=== PATIENT | male | born 1945 | race Caucasian/White ===

== ENCOUNTER → 2016-10-30 | Day surgery (SDC) | payer MEDICARE, OTHER ==
[~2016-10-30] VITALS: Ht 182.9 cm; Wt 136.0 kg
[~2016-10-30] MED LIST: ACETAMINOPHEN/HYDROcodone 325 MG/7.5 MG TAB PO PRN; ASPI-110 PO; BUPIVACAINE/EPINEPHRINE 0.25% 50 ML VIAL ONE; CHLORHEXIDINE GLUCONATE 2 % 1 PACK (2 CLOTHS) TOPICAL PRN; CHLORHEXIDINE GLUCONATE 4% SOLN 120 ML BTL TOPICAL SCH; DO NOT ADM ANY ANTICOAGULANT DRUGS PRN; FOLI800T PO; GENTAMICIN SULFATE 80 MG/2 ML VIAL ONE; HYDR-3288 PO; INSULIN HUMAN REGULAR 1,000 UNITS/10 ML VIAL SQ PRN; LACTATED RINGER'S 1000 ML IV PRN; MELO-1 PO; METH2.5T PO; METOPROLOL TARTRATE 25 MG TAB PO PRN; MORPHINE SULFATE 4 MG/ML INJ IV PUSH PRN; PHENYLEPH/NS 1000 MCG/10 ML SYR IV ONE; POVIDONE IODINE 5% (ANTISEPSIS KIT) 4 APPLICATIONS EACH NARE PRN; POVIDONE IODINE 7.5% SCRUB 118 ML BOTTLE TOPICAL SCH; PROPOFOL 200 MG/20 ML AMP IV ONE; ROPI1TAB PO; SODIUM CHLOR 0.9% 250 ML INJ 250 ML ONE; SODIUM CHLORID 0.9% 500 ML IV PRN; SODIUM CHLORIDE 0.9% FLUSH 10 ML FLUSH IV FLUSH PRN; SODIUM CHLORIDE 0.9% FLUSH 10 ML FLUSH IV FLUSH SCH; VANCOMYCIN HCL 1000 MG VIAL ONE; ceFAZolin 2 GM PREMIX 50 ML IV SCH; ceFAZolin 2 GM PREMIX 50 ML ONE; ceFAZolin INJ 1,000 MG VIAL ONE; ePHEDrine/NS 25 MG/5 ML SYR IV ONE
--- NOTE | 2016-10-30 11:54 | PD.OP ---
cc: Kem Jimenez MD Operative Report Date of Surgery: Oct 30, 2016 Preoperative Diagnosis: Left ankle distal tibiofibular ligament tear with disruption of the syndesmosis. Left ankle rupture of deltoid ligament. Postoperative Diagnosis: Same Procedure: Left ankle open reduction and internal fixation of syndesmosis. Left ankle open repair of deltoid ligament. Anesthesia: Gen. Surgeon: Kem Jimenez Production Administrative Assistant(s): GUSTAVO Mchugh The surgical procedure was assisted by my Advanced Registered Nurse Practitioner. My PATTERN SHOP SUPERVISOR presence was necessary throughout this case for the manipulation and positioning of the surgical extremity. My PATTERN SHOP SUPERVISOR was assisting me throughout the duration of this procedure. The skill set of an Advance Registered Nurse Practitioner was medically necessary to complete this procedure. During the surgical case, the surgical manager was working at the back table and the Advance Registered Nurse Practitioner was directly assisting me. Operation and Findings: The patient was brought back to the operative theater. Gen. anesthesia was administered. We did not use a tourniquet. The patient received intravenous Ancef and vancomycin. The left lower extremity was prepped and draped in usual sterile fashion. We took fluoroscopic imaging of the ankle with an without stress which showed very significant instability to the syndesmosis with extreme subluxation of the talus with abduction force. With varus force the ankle reduced. We made incision along the lateral aspect of the ankle after infiltrating local anesthesia with Marcaine. We started with fixation using a 4.0 fully threaded stainless steel screw. We drilled the 3 cortices including both cortices of the fibula and the lateral cortex of the tibia with the 4.0 drill bit. The fourth cortex was drilled with the small drill bit to allow for purchase of the screw. We anatomically reduced the mortise and then tightened the screw. We further secured the mortise fixation up a little more proximally using 3.5 fully threaded cortex screw placed in standard fashion. We stressed the mortise and found that the mortise was now anatomic and no longer unstable. However, we did find that the deltoid ligament still lent to quite a bit of tibial tilting. We did make incision medially and identified the deltoid ligament torn off of the medial malleolus and flipped into the joint region. This was removed. We then placed a deep anchor, Arthrex 3.5 with an associated #2 FiberWire. There was some minor fragmentation of the medial malleolus with punching before putting in the anchor. The anchor had excellent purchase. We then repaired the deltoid ligament placing multiple sutures, horizontal mattress in nature through the deltoid ligament up and down the ligament several times. This created very nice fixation. We took final fluoroscopic imaging revealing good position to the ankle. The wounds were irrigated and closed with 2-0 Vicryl followed by 3-0 nylon. The patient leg was dressed and placed into a splint. Postoperative plan is nonweightbearing for 3 months. He will require a staged, planned removal of hardware for the syndesmotic screws at that time. Kem Jimenez MD Oct 30, 2016 11:54
[2016-10-30 13:35] VITALS: BP 165/92; PULSE 94; RESP 20; TEMP 98.5; O2SAT 96
--- NOTE | 2016-10-30 13:40 | EKG ---
Date Performed: 10/30/2016 Time Performed: 08:13:17 PTAGE: 70 years EKG: Sinus rhythm POSSIBLE RIGHT VENTRICULAR CONDUCTION DELAY LEFT VENTRICULAR HYPERTROPHY AND ST-T CHANGE ABNORMAL EC G NO PREVIOUS TRACING DOCTOR: John Krishnamurthy Interpretating Date/Time 10/30/2016 13:38:00
--- NOTE | 2016-10-30 17:15 | RADRPT ---
EXAM DATE/TIME: 10/30/2016 10:59 [facility] COMPARISON: No previous studies available for comparison. INDICATIONS : Left ankle fracture repair. OR. MEDICAL HISTORY : None. SURGICAL HISTORY : None. ENCOUNTER: Initial ACUITY: 1 day PAIN SCORE: Non-responsive. LOCATION: Left ankle FINDINGS: 5 images were recorded digitally in the operating room using C-arm during screw fixation and reductio n of ankle dislocation. CONCLUSION: Intraoperative images. Tonio Barba MD on October 30, 2016 at 17:12 Board Certified Radiologist. This report was verified electronically.
== END | disposition home or self-care (01) ==
LOC: HSDC 07:05
PROVIDERS: ATTEND Orthopaedic Surgery
DX: S93.432A Sprain of tibiofibular ligament of left ankle, initial encounter (principal); S93.422A Sprain of deltoid ligament of left ankle, initial encounter; E66.01 Morbid (severe) obesity due to excess calories; G64 Other disorders of peripheral nervous system; Z01.810 Encounter for preprocedural cardiovascular examination
CPT/HCPCS: 01480; 27792; 27829; 73600; 76000; 93005; C1713; J0690; J1580; J2370; J3010; J3370; J7050; J7120